=== PATIENT | female | born 1995 | race Caucasian/White ===

== ENCOUNTER 2021-11-10 11:22 | Emergency (ER) | payer SELFPAY | END 2021-11-10 13:54 | disposition home or self-care (01) | LOC: CSHERS 11:22 | DX: O20.0 Threatened abortion (principal); Z3A.01 Less than 8 weeks gestation of pregnancy | CPT/HCPCS: 36415; 86900; 86901; 90384; 96372 ==

== ENCOUNTER 2022-05-31 11:07 | Day surgery (SDC) | payer OTHER ==
[2022-05-31 11:28] VITALS: BMI 39.4
[2022-05-31] MEDS ORDERED: hydrALAZINE 20 MG/ML VIAL SLOW IVP PRN (12:17)
[2022-05-31 13:40] LABS: #Eosinphils 0.1 10x3/uL (0.0-0.5); #Monocytes 0.6 10x3/uL (0.0-1.1); #Neutrophils 11.9 10x3/uL (1.5-8.4); %Basophils 0.3 % (0.0-2.0); %Eosinophils 0.5 % (0.0-6.0); %Lymphocytes 11.6 % (18.0-47.0); %Monocytes 4.1 % (0.0-10.0); %Neutrophils 82.2 % (40.0-75.0); Hemoglobin 10.4 g/dL (12.0-15.5); Mean Corpuscular HGB CONC 32.1 g/dL (32.0-36.0); Mean Corpuscular Hemoglobin 25.2 pg (27.0-33.0); Mean Corpuscular Volume 78.6 fl (81.6-98.3); Mean Platelet Volume 10.7 fl (7.4-10.4); Platelet Count 261 10x3/uL (150-450); RBC Distribution Width 14.2 % (11.5-14.5); Red Blood Cell (RBC) Count 4.12 10x6/uL (3.90-5.03); White Blood Cell (WBC) Count 14.4 10x3/uL (3.5-10.5)
[2022-05-31 13:47] LABS: ALT (SGPT) 12 U/L (8-55); AST (SGOT) 13 U/L (5-34); Albumin 3.3 g/dL (3.5-5.0); Alkaline Phosphatase 116 U/L (40-110); Anion Gap 14 mmol/L (10-20); BUN (Urea Nitrogen) 9 mg/dL (7.0-18.7); Bilirubin, Total 0.6 mg/dL (0.2-1.2); Calc. Creatinine Clearance 225 mL/min (70-130); Calcium 8.9 mg/dL (7.8-10.44); Carbon Dioxide 22 mmol/L (22-29); Chloride 104 mmol/L (98-107); Estimated GFR 126; Globulin 3.4 g/dL (2.4-3.5); Glucose 67 mg/dL (70-105); Lipase 50 U/L (8-78); Potassium 3.9 mmol/L (3.5-5.1); Protein, Total 6.7 g/dL (6.0-8.3); Sodium 136 mmol/L (136-145)
== END 2022-05-31 15:29 | disposition home or self-care (01) ==
LOC: CSHLD/OP 11:07
PROVIDERS: ATTEND Obstetrics & Gynecology
DX: O26.892 Other specified pregnancy related conditions, second trimester (principal); Z67.31 Type AB blood, Rh negative; O99.012 Anemia complicating pregnancy, second trimester; D50.9 Iron deficiency anemia, unspecified; Z3A.20 20 weeks gestation of pregnancy; Z90.49 Acquired absence of other specified parts of digestive tract; Z79.899 Other long term (current) drug therapy; Z91.040 Latex allergy status
CPT/HCPCS: 36415; 76705; 80053; 82239; 83690; 85025; 99282

== ENCOUNTER 2022-06-02 18:29 | Day surgery (SDC) | payer OTHER ==
[2022-06-02] MEDS ORDERED: hydrALAZINE 20 MG/ML VIAL SLOW IVP PRN (18:35)
[2022-06-02 19:34] LABS: #Eosinphils 0.1 10x3/uL (0.0-0.5); #Monocytes 0.5 10x3/uL (0.0-1.1); #Neutrophils 9.7 10x3/uL (1.5-8.4); %Basophils 0.2 % (0.0-2.0); %Eosinophils 0.8 % (0.0-6.0); %Lymphocytes 14.2 % (18.0-47.0); %Monocytes 4.3 % (0.0-10.0); %Neutrophils 79.2 % (40.0-75.0); Hemoglobin 9.8 g/dL (12.0-15.5); Mean Corpuscular HGB CONC 32.1 g/dL (32.0-36.0); Mean Corpuscular Hemoglobin 25.3 pg (27.0-33.0); Mean Corpuscular Volume 78.6 fl (81.6-98.3); Mean Platelet Volume 10.6 fl (7.4-10.4); Platelet Count 250 10x3/uL (150-450); RBC Distribution Width 13.9 % (11.5-14.5); Red Blood Cell (RBC) Count 3.88 10x6/uL (3.90-5.03); White Blood Cell (WBC) Count 12.2 10x3/uL (3.5-10.5)
[2022-06-02 19:49] LABS: ALT (SGPT) 14 U/L (8-55); AST (SGOT) 16 U/L (5-34); Albumin 3.3 g/dL (3.5-5.0); Alkaline Phosphatase 113 U/L (40-110); Anion Gap 15 mmol/L (10-20); BUN (Urea Nitrogen) 10 mg/dL (7.0-18.7); Bilirubin, Total 0.5 mg/dL (0.2-1.2); Calc. Creatinine Clearance 0 mL/min (70-130); Calcium 9.1 mg/dL (7.8-10.44); Carbon Dioxide 20 mmol/L (22-29); Chloride 103 mmol/L (98-107); Estimated GFR 127; Globulin 3.2 g/dL (2.4-3.5); Glucose 75 mg/dL (70-105); Potassium 3.7 mmol/L (3.5-5.1); Protein, Total 6.5 g/dL (6.0-8.3); Sodium 134 mmol/L (136-145)
== END 2022-06-02 20:20 | disposition home or self-care (01) ==
LOC: CSHLD/OP 18:29
PROVIDERS: ATTEND Obstetrics & Gynecology
DX: O99.613 Diseases of the digestive system complicating pregnancy, third trimester (principal); K80.20 Calculus of gallbladder without cholecystitis without obstruction; O36.8130 Decreased fetal movements, third trimester, not applicable or unspecified; Z91.040 Latex allergy status; Z3A.36 36 weeks gestation of pregnancy
CPT/HCPCS: 76819; 80053; 85025; 99282

== ENCOUNTER 2022-07-20 22:59 | Emergency (ER) | payer OTHER ==
[2022-07-20] MEDS ORDERED: Sulfameth/Trimethoprim DS 800-160mg TAB ONE (23:59)
[2022-07-20] MEDS ORDERED: Bacitracin 1 PK ONE (23:59)
== END 2022-07-21 00:02 | disposition home or self-care (01) ==
LOC: CSHERS 22:59
DX: O90.0 Disruption of cesarean delivery wound (principal)
CPT/HCPCS: 99283

== ENCOUNTER 2023-03-30 12:04 | Observation (INO) | payer OTHER ==
[2023-03-30 13:38] VITALS: BMI 39.8
[2023-03-30] MEDS ORDERED: Iopamidol 30 ML ONE (14:21)
[2023-03-30] MEDS ORDERED: Bupivacaine HCl 0.5%/Epinephrine 1:200,000/PF 30 ml Vial ONE (14:21)
[2023-03-30] MEDS ORDERED: Glucagon 1 MG/ML KIT ONE (14:22)
[2023-03-30] MEDS ORDERED: fentaNYL 50 mcg/mL 1 mL Vial ONE ×2 (14:56→17:45)
[2023-03-30] MEDS ORDERED: SUGAMMADEX SODIUM 200 MG/2 ML VIAL ONE (15:10)
[2023-03-30] MEDS ORDERED: Fentanyl 250 MCG/5 ML VIAL ONE (15:11)
[2023-03-30] MEDS ORDERED: PROPOFOL 20 ML ONE (15:11)
[2023-03-30] MEDS ORDERED: Lidocaine 1% PF 5 ML VIAL ONE (15:12)
[2023-03-30] MEDS ORDERED: Dexamethasone 20 MG/5 ML VIAL ONE (15:12)
[2023-03-30] MEDS ORDERED: Rocuronium Bromide 10 MG/ML (10ML VIAL) ONE (15:12)
[2023-03-30] MEDS ORDERED: Ondansetron PF 4 MG/2 ML Vial ONE (15:12)
[2023-03-30] MEDS ORDERED: PHENYLEPHRINE-NS 100 MCG/ML 10 ML SYRINGE ONE (15:47)
[2023-03-30] MEDS ORDERED: CEFAZOLIN 1 GM VIAL ONE (15:48)
[2023-03-30] MEDS ORDERED: Ketorolac Tromethamine 30 MG/ML VIAL ONE (16:42)
[2023-03-30] MEDS ORDERED: Acetaminophen/Codeine 30-300mg Tablet PO PRN (17:00)
[2023-03-30] MEDS ORDERED: Piperacillin/Tazobactam 3.375 GM in Sodium Chloride 0.9% 100 ML IVPB SCH (17:15)
[2023-03-30] MEDS ORDERED: Albuterol HFA (OR) 200 PUFF INH ONE (17:46)
[2023-03-30] MEDS: Acetaminophen 500 MG TAB PO SCH ×2 (19:43→21:31)
[2023-03-30] MEDS: Ketorolac Tromethamine 30 MG/ML VIAL IVP SCH (19:43)
[2023-03-30] MEDS: Piperacillin/Tazobactam 3.375 GM in Sodium Chloride 0.9% 100 ML IVPB SCH (21:31)
[2023-03-31] MEDS: Ketorolac Tromethamine 30 MG/ML VIAL IVP SCH ×2 (00:48→05:39)
[2023-03-31] MEDS: Acetaminophen 500 MG TAB PO SCH (04:26)
[2023-03-31 04:30] LABS: ALT (SGPT) 31 U/L (8-55); AST (SGOT) 41 U/L (5-34); Albumin 3.5 g/dL (3.5-5.0); Alkaline Phosphatase 60 U/L (40-110); Anion Gap 13 mmol/L (10-20); BUN (Urea Nitrogen) 5 mg/dL (7.0-18.7); Bilirubin, Direct 0.3 mg/dL (0.1-0.3); Bilirubin, Total 0.6 mg/dL (0.2-1.2); Calc. Creatinine Clearance 211 mL/min (70-130); Calcium 8.3 mg/dL (7.8-10.44); Carbon Dioxide 21 mmol/L (22-29); Chloride 107 mmol/L (98-107); Estimated GFR 123; Glucose 106 mg/dL (70-105); Lipase 19 U/L (8-78); Protein, Total 6.4 g/dL (6.0-8.3); Sodium 137 mmol/L (136-145)
[2023-03-31] MEDS: Piperacillin/Tazobactam 3.375 GM in Sodium Chloride 0.9% 100 ML IVPB SCH (05:40)
[2023-03-31 08:49] VITALS: BP 98/55; TEMP 97.9
== END 2023-03-31 11:20 | disposition home or self-care (01) ==
LOC: CSHSDC 12:04 → CSHTELE 12:12 → UNDOADMOB 12:12 → INTOOBSV 12:12 → CSHTELE 17:00
PROVIDERS: ADMIT Surgery; ATTEND Surgery
PROC: 0FJB8ZZ Inspection of Hepatobiliary Duct, Via Natural or Artificial Opening Endoscopic (ICD-10-PCS; principal; 2023-03-30)
PROC: 0FT44ZZ Resection of Gallbladder, Percutaneous Endoscopic Approach (ICD-10-PCS; 2023-03-30)
DX: K80.62 Calculus of gallbladder and bile duct with acute cholecystitis without obstruction (principal); Z88.8 Allergy status to other drugs, medicaments and biological substances; Z79.899 Other long term (current) drug therapy
CPT/HCPCS: 36415; 74330; 80048; 80076; 83690; 87070; 87077; 87186; 87205; 88304; 94640; 96372; 96374; 96375; 96376; C1725; C1769; C1889; G0378; J0690; J1100; J1611; J1650; J1885; J2405; J2543; J2704; J3010; J3490; J7611; Q9967